=== PATIENT | male | born 1995 | race Caucasian/White ===

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

== ENCOUNTER 2017-01-18 11:27 | Emergency (ER) | payer BC ==
--- NOTE | 2017-01-18 12:09 | ED ---
Upper Extremity HPI - General Chief Complaint: Extremity Injury, Upper Stated Complaint: POSS DVT IN LEFT ARM, SENT BY FOR US Time Seen by Provider: 01/18/17 11:38 Source: patient, RN notes reviewed Mode of arrival: ambulatory Limitations: no limitations - History of Present Illness Initial Comments: This a 21-year-old male presents emergency Department from [facility] for left arm swelling. 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 Patient states he was discontinued on Coumadin 3 weeks ago. Patient states no swelling and minimal discomfort in his left hand that started yesterday. Patient with [facility] though they did not have ultrasound sent here for ultrasound. Patient denies any headache, dizziness, chest pain, shortness breath, fever, chills, nausea, vomiting diarrhea constipation. Denies any redness to his arm. states that he hadn't PICC line secondary to sinus infection which cause cavernous thrombosis. - Related Data Home Medications Medication Instructions Recorded Confirmed Montelukast [Singulair] 10 mg PO HS 09/10/16 01/18/17 Clindamycin HCl 300 mg PO TID 01/18/17 01/18/17 Allergies Allergy/AdvReac Type Severity Reaction Status Date / Time No Known Allergies Allergy Verified 01/18/17 11:51 Review of Systems ROS Statement: Those systems with pertinent positive or pertinent negative responses have been documented in the HPI. ROS Other: All systems not noted in ROS Statement are negative. Past Medical History Past Medical History: Asthma, Deep Vein Thrombosis (DVT) Additional Past Medical History / Comment(s): asthma as a child History of Any Multi-Drug Resistant Organisms: None Reported Past Surgical History: Tonsillectomy Additional Past Surgical History / Comment(s): sinus surgery Past Anesthesia/Blood Transfusion Reactions: No Reported Reaction Past Psychological History: No Psychological Hx Reported Smoking Status: Never smoker Past Alcohol Use History: None Reported Past Drug Use History: None Reported - Past Family History Mother Family Medical History: Cancer, Hypertension General Exam Limitations: no limitations General appearance: alert, in no apparent distress Neck exam: Present: normal inspection. Absent: tenderness, meningismus, lymphadenopathy Respiratory exam: Present: normal lung sounds bilaterally. Absent: respiratory distress, wheezes, rales, rhonchi, stridor Cardiovascular Exam: Present: regular rate, normal rhythm, normal heart sounds. Absent: systolic murmur, diastolic murmur, rubs, gallop, clicks Extremities exam: Present: other (There is mild swelling to the left arm there is no tenderness with palpation no erythema radial pulses are equal bilaterally. ) Neurological exam: Present: alert, oriented X3, CN II-XII intact Skin exam: Present: warm, dry, intact, normal color. Absent: rash Course Vital Signs 01/18/17 11:34 Temperature 97.9 F Pulse Rate 82 Respiratory 20 Rate Blood Pressure 140/79 O2 Sat by Pulse 97 Oximetry Medical Decision Making - Medical Decision Making [id number]-awy male presented for left arm pain swelling. Patient's ultrasound does not reveal any acute DVT. Patient will be discharged at this time return parameters discussed. Disposition Clinical Impression: Left arm swelling Disposition: HOME SELF-CARE Condition: Stable Instructions: Edema (ED) Additional Instructions: Please return to the Emergency Department if symptoms worsen or any other concerns. Referrals: Rojelio Pantoja DO [Primary Care Provider] - 1-2 days Time of Disposition: 12:37
[2017-01-18 12:44] VITALS: BP 136/80; PULSE 87; RESP 19; TEMP 98
--- NOTE | 2017-01-18 12:52 | US ---
EXAMINATION TYPE: US venous doppler duplex UE LT DATE OF EXAM: 01/18/2017 COMPARISON: NONE CLINICAL HISTORY: Pain and swelling. Patient states history of DVT left arm from a PICC line in for 8 weeks Aug 2016, no longer on thinners. SIDE PERFORMED: left Evaluation performed of the left internal jugular, visualized portions of the subclavian and axillary vein as well as cephalic vein, ulnar veins and radial veins, brachial veins. Left Arm: Negative for DVT IMPRESSION: Grayscale, color doppler, spectral doppler imaging performed of the deep veins of the upper extremiti es. There is normal flow, compressibility and vascular waveforms. No evident deep venous thrombosis within the left upper extremity.
== END 2017-01-18 12:43 | disposition home or self-care (01) ==
LOC: EC 11:27
DX: M79.89 Other specified soft tissue disorders (principal); Z79.899 Other long term (current) drug therapy
CPT/HCPCS: 99283